=== PATIENT | male | born 1995 | race African-American/Black ===

== ENCOUNTER 2022-08-05 19:07 | Emergency (ER) | payer BC ==
[2022-08-05] MEDS ORDERED: Ibuprofen 800 MG TAB ONE (19:32)
[2022-08-05 20:20] LABS: SARS-CoV-2 NAA Rapid Test DETECTED (NotDetected)
== END 2022-08-05 20:57 | disposition home or self-care (01) ==
LOC: CSHERS 19:07
DX: U07.1 COVID-19 (principal); K21.9 Gastro-esophageal reflux disease without esophagitis; F17.210 Nicotine dependence, cigarettes, uncomplicated; Z79.899 Other long term (current) drug therapy
CPT/HCPCS: 99283

== ENCOUNTER 2022-08-07 16:53 | Emergency (ER) | payer BC, OTHER | END 2022-08-07 20:25 | disposition home or self-care (01) | LOC: CSHERS 16:53 | DX: U07.1 COVID-19 (principal); R09.1 Pleurisy; K21.9 Gastro-esophageal reflux disease without esophagitis; F17.290 Nicotine dependence, other tobacco product, uncomplicated | CPT/HCPCS: 71045; 93005 ==

== ENCOUNTER 2022-08-13 22:54 | Emergency (ER) | payer OTHER ==
[2022-08-13] MEDS ORDERED: Tetracaine 0.5% PF 4 ML BOT ONE (23:23)
[2022-08-13] MEDS ORDERED: Fluorescein Opthalmic Strip ONE (23:24)
[2022-08-14] MEDS ORDERED: Erythromycin Base 0.5% Oint 1 GM TUBE ONE (01:04)
[2022-08-14] MEDS ORDERED: Ibuprofen 200 MG TAB ONE (01:04)
[2022-08-14] MEDS ORDERED: traMADol HCl 50 MG TAB ONE (01:04)
== END 2022-08-14 01:43 | disposition home or self-care (01) ==
LOC: CSHERS 22:54
DX: H10.33 Unspecified acute conjunctivitis, bilateral (principal); H16.133 Photokeratitis, bilateral
CPT/HCPCS: 99283

== ENCOUNTER 2023-06-10 08:56 | Emergency (ER) | payer BC, OTHER, SELFPAY | END 2023-06-10 10:35 | disposition home or self-care (01) | LOC: CSHERS 08:56 | DX: R68.84 Jaw pain (principal); F17.210 Nicotine dependence, cigarettes, uncomplicated | CPT/HCPCS: 99283 ==